=== PATIENT | male | born 1960 | race American Indian/Alaskan Native ===

== ENCOUNTER 2018-05-07 09:31 | Outpatient (CLI) | payer OTHER ==
--- NOTE | 2018-05-07 22:34 | XRay Report ---
FINAL REPORT EXAM: XR SPINE LUMBOSACRAL 2-3V HISTORY: SHOULDER PAIN MEMORY LOSS SWOLLEN ANKLES TECHNIQUE: Three views lumbosacral spine Comparison: None FINDINGS: Mild global osteopenia. Normal lumbar lordosis. No spondylolisthesis. Minimal degenerative spurring vertebral bodies. Left hip arthroplasty with screwed acetabular component. SI joints are. Sacral arches are intact. There is mild diffuse fecal retention. IMPRESSION: Left hip arthroplasty. Minimal degenerative arthritis lumbosacral spine. No compression fracture.
--- NOTE | 2018-05-07 22:41 | XRay Report ---
FINAL REPORT EXAM: XR SPINE CERVICAL 2-3V HISTORY: SHOULDER PAIN MEMORY LOSS SWOLLEN ANKLES TECHNIQUE: Six view cervical spine Comparison: None FINDINGS: Global osteopenia. Straightening of the normal cervical lordosis. Degenerative appearing wedging C5, C6. Cervicothoracic junction is not imaged in the lateral projection. Open mouth odontoid is unremarkable. C1 lateral masses align normally on C2. There is left facet osteoarthritis and mild uncovertebral hypertrophy. The imaged lung apices are clear. There is mild right apical pleural thickening. Additional swimmer's view does not fully assess the cervicothoracic junction. Slight offset and widened C4/5 spinal laminar line. IMPRESSION: Degenerative findings as above. Straightened cervical lordosis with multilevel degenerative appearing wedging. Slight offset and widened C4/C5 spinal laminar line. Cervicothoracic junction is not imaged although it is not necessary unless this is trauma series. No trauma history was provided. If trauma history, recommend additional imaging for assessment of the widened C4/C5 spinous process which is offset. Recommend CT cervical spine. These findings are called on 05/07/2018 at 2232 hours by [facility],Sheila Rea.
== END 2018-05-07 09:32 | disposition home or self-care (01) ==
LOC: XRAY 09:31
PROVIDERS: ATTEND Internal Medicine
DX: M47.892 Other spondylosis, cervical region (principal); M85.88 Other specified disorders of bone density and structure, other site; M47.896 Other spondylosis, lumbar region; Z96.642 Presence of left artificial hip joint
CPT/HCPCS: 72040; 72100

== ENCOUNTER 2018-06-29 16:19 | Emergency (ER) | payer SELFPAY ==
[2018-06-29] MEDS ORDERED: NACL 0.9% 1000 ML 1,000 ML IV ONE (16:43)
[2018-06-29] MEDS ORDERED: PEPCID IV ONE (16:43)
[2018-06-29 17:19] LABS: Basophils % (Auto) 0.6 % (0.0-1.8); Eosinophils % (Auto) 0.3 % (0.0-4.3); Hematocrit 42.6 % (35.5-45.6); Hemoglobin 14.7 gm/dl (11.8-15.2); Lymphocytes # (Auto) 2.9 K/mm3 (1.2-5.4); Lymphocytes % (Auto) 44.9 % (13.4-35.0); Mean Corpuscular HGB Conc 35 % (32-34); Mean Corpuscular Hemoglobin 35 pg (28-32); Mean Corpuscular Volume 100 fl (84-94); Monocytes # (Auto) 0.4 K/mm3 (0.0-0.8); Monocytes % (Auto) 6.5 % (0.0-7.3); Platelet Count 281 K/mm3 (140-440); Red Blood Count 4.27 M/mm3 (3.65-5.03); Red Cell Distribution Width 13.4 % (13.2-15.2)
[2018-06-29 17:34] LABS: BUN/Creatinine Ratio 18; Blood Urea Nitrogen 16 mg/dL (9-20); Calcium 9.3 mg/dL (8.4-10.2); Hemolysis Index 7
--- NOTE | 2018-06-29 18:51 | Emergency Department Report ---
ED General Adult HPI - General Chief complaint: Extremity Problem,Nontraumatic Stated complaint: ETOH Time Seen by Provider: 06/29/18 16:37 Source: patient, EMS Mode of arrival: Stretcher Limitations: Physical Limitation - History of Present Illness Initial comments: Patient is a 57-year-old [place] male who is a chronic alcoholic who states he thinks he may have drank more than he should have and his hands are swollen. Patient otherwise is a poor historian. Patient states he called 911 because he felt like he was "going to go out" patient denies any fevers chills cough, congestion nausea vomiting at this time. - Related Data Allergies Allergy/AdvReac Type Severity Reaction Status Date / Time No Known Allergies Allergy Unverified 07/01/14 08:51 ED Review of Systems ROS: Stated complaint: ETOH Other details as noted in HPI Comment: All other systems reviewed and negative ED Past Medical Hx - Past Medical History Previous Medical History?: Yes Hx Hypertension: Yes Additional medical history: Hypokalemia - Surgical History Past Surgical History?: Yes Additional Surgical History: Knee surgery - Social History Smoking Status: Former Smoker Substance Use Type: Alcohol ED Physical Exam - General Limitations: Physical Limitation General appearance: alert, appears intoxicated - Head Head exam: Present: atraumatic, normocephalic - Eye Eye exam: Present: normal appearance - ENT ENT exam: Present: mucous membranes moist - Neck Neck exam: Present: normal inspection - Respiratory Respiratory exam: Present: normal lung sounds bilaterally. Absent: respiratory distress, wheezes, rales - Cardiovascular Cardiovascular Exam: Present: regular rate, normal rhythm. Absent: systolic murmur, diastolic murmur, rubs, gallop - GI/Abdominal GI/Abdominal exam: Present: soft, normal bowel sounds. Absent: distended, tenderness, guarding, rebound - Rectal Rectal exam: Present: deferred - Extremities Exam Extremities exam: Present: normal inspection, full ROM, normal capillary refill. Absent: tenderness, pedal edema, joint swelling, calf tenderness - Back Exam Back exam: Present: normal inspection - Neurological Exam Neurological exam: Present: alert, oriented X3 - Psychiatric Psychiatric exam: Present: normal affect, normal mood - Skin Skin exam: Present: warm, dry, intact, normal color. Absent: rash ED Course Vital Signs 06/29/18 06/29/18 06/29/18 16:43 16:46 17:00 Pulse Rate 107 H 91 H Respiratory 12 18 17 Rate Blood Pressure 142/97 142/97 O2 Sat by Pulse 98 Oximetry ED Medical Decision Making - Lab Data Result diagrams: 06/29/18 16:52 06/29/18 16:52 Lab Results 06/29/18 06/29/18 06/29/18 Range/Units 16:52 16:52 16:52 WBC 6.5 (4.5-11.0) K/mm3 RBC 4.27 (3.65-5.03) M/mm3 Hgb 14.7 (11.8-15.2) gm/dl Hct 42.6 (35.5-45.6) % MCV 100 H (84-94) fl MCH 35 H (28-32) pg MCHC 35 H (32-34) % RDW 13.4 (13.2-15.2) % Plt Count 281 (140-440) K/mm3 Lymph % (Auto) 44.9 H (13.4-35.0) % Island % (Auto) 6.5 (0.0-7.3) % Eos % (Auto) 0.3 (0.0-4.3) % Baso % (Auto) 0.6 (0.0-1.8) % Lymph # 2.9 (1.2-5.4) K/mm3 Island # 0.4 (0.0-0.8) K/mm3 Eos # 0.0 (0.0-0.4) K/mm3 Baso # 0.0 (0.0-0.1) K/mm3 Seg Neutrophils % 47.7 (40.0-70.0) % Seg Neutrophils # 3.1 (1.8-7.7) K/mm3 Sodium 148 H (137-145) mmol/L Potassium 3.6 (3.6-5.0) mmol/L Chloride 107.3 H (98-107) mmol/L Carbon Dioxide 24 (22-30) mmol/L Anion Gap 20 mmol/L BUN 16 (9-20) mg/dL Creatinine 0.9 (0.8-1.5) mg/dL Estimated GFR > 60 ml/min BUN/Creatinine Ratio 18 % Glucose 95 (75-100) mg/dL Calcium 9.3 (8.4-10.2) mg/dL Plasma/Serum Alcohol 0.35 H (0-0.07) % - Medical Decision Making H and clinically is this very intoxicated. Patient is showing some behavioral issues while in the emergency department was sometimes B stating that the nurses were out to get around but other times very thankful for all the hardware nurses are doing. I will be allowed to reach sobriety and will also try to contact the patient's family members to come get him. Critical care attestation.: If time is entered above; I have spent that time in minutes in the direct care of this critically ill patient, excluding procedure time. ED Disposition Clinical Impression: Alcohol intoxication Qualifiers: Complication of substance-induced condition: uncomplicated Qualified Code(s): F10.920 - Alcohol use, unspecified with intoxication, uncomplicated Disposition: DC-01 TO HOME OR SELFCARE Is pt being admited?: No Does the pt Need Aspirin: No Condition: Stable Referrals: PRIMARY CARE, [Primary Care Provider] - 3-5 Days
[2018-06-29 20:15] VITALS: BP 168/109
== END 2018-06-29 20:20 | disposition home or self-care (01) ==
LOC: ED 16:19
DX: F10.129 Alcohol abuse with intoxication, unspecified (principal); I10 Essential (primary) hypertension; E87.6 Hypokalemia; Z87.891 Personal history of nicotine dependence
CPT/HCPCS: 36415; 80048; 85025; 99283; G0480; J7030; 80320